=== PATIENT | male | born 1995 | race Caucasian/White ===

== ENCOUNTER 2018-12-17 00:31 | Emergency (ER) | payer MEDICAID ==
[~2018-12-17] VITALS: Ht 172.7 cm; Wt 68.3 kg
[2018-12-17 05:45] VITALS: BP 122/75
== END 2018-12-17 05:45 | disposition home or self-care (01) ==
LOC: ER 01:31
DX: L72.9 Follicular cyst of the skin and subcutaneous tissue, unspecified (principal)
CPT/HCPCS: 76870; 93976; 99284

== ENCOUNTER 2022-08-14 18:12 | Emergency (ER) | payer MEDICAID ==
[~2022-08-14] VITALS: Ht 172.7 cm; Wt 72.7 kg
[2022-08-14] MEDS ORDERED: BACITRACIN ZINC OINT UDPKT TOP ONE (22:15)
[2022-08-14] MEDS ORDERED: LIDOCAINE HCL/PF 1% 10 MG/ML 5ML VIAL INFIL ONE (22:15)
[2022-08-14] MEDS ORDERED: IBUPROFEN 400MG TABLET PO ONE (22:15)
[2022-08-14 22:17] VITALS: BP 133/89
[2022-08-14] MEDS ORDERED: AMOX1TAB16 MT (23:49)
[2022-08-14] MEDS ORDERED: IBUP-2028 MT (23:49)
== END 2022-08-15 | disposition home or self-care (01) ==
LOC: ER 18:12
DX: S61.213A Laceration without foreign body of left middle finger without damage to nail, initial encounter (principal); Y04.0XXA Assault by unarmed brawl or fight, initial encounter; Y93.89 Activity, other specified; Y92.89 Other specified places as the place of occurrence of the external cause; Y99.8 Other external cause status
CPT/HCPCS: 12001; 73130; 99283; J3490; Z7610

== ENCOUNTER 2022-08-16 21:04 | Emergency (ER) | payer MEDICAID ==
[~2022-08-16] VITALS: Ht 172.7 cm; Wt 90.0 kg
[~2022-08-16 21:04] MED LIST: AMOX1TAB16 MT; IBUP-2028 MT
[2022-08-16 21:20] VITALS: BP 120/84
== END 2022-08-16 21:56 | disposition home or self-care (01) ==
LOC: ER 21:04
DX: Z48.02 Encounter for removal of sutures (principal); F12.10 Cannabis abuse, uncomplicated
CPT/HCPCS: 99281

== ENCOUNTER 2022-08-31 17:36 | Emergency (ER) | payer MEDICAID ==
[2022-08-31 17:46] VITALS: PULSE 88; RESP 14
== END 2022-08-31 18:18 | disposition left against medical advice (07) ==
LOC: ER 17:55
DX: Z53.21 Procedure and treatment not carried out due to patient leaving prior to being seen by health care provider (principal)
CPT/HCPCS: 99281

== ENCOUNTER 2023-04-06 08:14 | Emergency (ER) | payer MEDICAID ==
[~2023-04-06] VITALS: Ht 170.2 cm; Wt 73.0 kg
[2023-04-06 08:23] VITALS: O2SAT 99
[2023-04-06] MEDS: CARBAMIDE PEROXIDE 6.5% OTIC SOLN 15ML LEFT EAR ONE (09:30)
[2023-04-06] MEDS ORDERED: CARB-173 EACH EAR (11:45)
[2023-04-06 12:42] VITALS: BP 117/86; PULSE 71; RESP 16; TEMP 97.8
== END 2023-04-06 12:43 | disposition home or self-care (01) ==
LOC: ER 08:14
DX: T16.2XXA Foreign body in left ear, initial encounter (principal); W44.9XXA Unspecified foreign body entering into or through a natural orifice, initial encounter; Y93.89 Activity, other specified; Y92.89 Other specified places as the place of occurrence of the external cause; Y99.8 Other external cause status
CPT/HCPCS: 69200; 99284